=== PATIENT | male | born 1950 | race African-American/Black ===

== ENCOUNTER 2017-05-10 15:25 | Outpatient (CLI) | payer SELFPAY | END 2017-05-10 15:26 | disposition home or self-care (01) | LOC: BICRAD 15:25 | PROVIDERS: ATTEND Radiology Diagnostic Radiology | DX: Z02.1 Encounter for pre-employment examination (principal) | CPT/HCPCS: 71046 ==

== ENCOUNTER 2017-07-08 08:35 | Day surgery (SDC) | payer MEDICARE, OTHER ==
[2017-07-07 14:48] VITALS: BMI 36.1
[~2017-07-08 08:35] MED LIST: Cyclopentolate 1% Opth Drop 2 ML BOT FS SCH; Fluorouracil 100 MG, Enoxaparin Sodium 25 MG, EPINEPHrine 0.3 MG in Ophthalmic Irrigati... IVPB SCH; Phenylephrine 2.5% Ophth Soln 5 ML BOT FS SCH
[2017-07-08] MEDS ORDERED: Lidocaine 1% PF 5 ML VIAL ONE (09:54)
[2017-07-08] MEDS ORDERED: PROPOFOL 200 MG/20 ML VIAL ONE (09:54)
[2017-07-08] MEDS ORDERED: Phenylephrine 2.5% Ophth Soln 5 ML BOT ONE (10:02)
[2017-07-08] MEDS ORDERED: Cyclopentolate 1% Opth Drop 2 ML BOT ONE (10:02)
[2017-07-08] MEDS ORDERED: Lidocaine 2% 10 ML INJ ONE (10:28)
[2017-07-08] MEDS ORDERED: Fentanyl 100 MCG/2 ML VIAL ONE (10:28)
[2017-07-08] MEDS ORDERED: Midazolam HCl 2 mg/2 ml Vial ONE (10:28)
[2017-07-08] MEDS ORDERED: PROPOFOL 20 ML ONE (10:28)
--- NOTE | 2017-07-08 14:57 | OP ---
DATE OF PROCEDURE: 07/08/2017 PREOPERATIVE DIAGNOSIS: Macular hole, left eye. POSTOPERATIVE DIAGNOSIS: Macular hole, left eye. PROCEDURE: Pars plana vitrectomy, internal limiting membrane peel, left eye. SURGEON: Uri Louis M.D. ANESTHESIA: Local with monitored anesthesia care. PROCEDURE IN DETAIL: The patient was identified in the preoperative holding area. Appropriate infor med consent for the planned surgical procedure on the left eye been obtained. The patient was transp orted to the operative suite. Appropriate cardiopulmonary monitoring was established. Local anesthe scarlett obtained using retrobulbar and modified Van Lint lid block using 50:50 mixture of 4% lidocaine an d 0.75% bupivacaine. The patient was prepped and draped in the usual sterile manner for ophthalmic s urgery on the left eye. Lid speculum was placed in the left eye. The 25-gauge trocars with were vini stella in conjunctiva and sclera supratemporally, inferotemporally and supranasally. Infusion line was placed inferotemporally. Light pipe and vitreous cutter were inserted into the eye. Core vitrectomy was performed. Posterior hyaloid face was noted to be elevated and peeled into the periphery using vacuum suction. Indocyanine green dye was infused on the posterior pole x1, identifying the internal limiting membrane. This was elevated using a Sinan scraper and peeled across the macula using end-gr ipping forceps. Indirect ophthalmoscopy was used to examine the retina 360 degrees. No holes, break s or tears were identified. A 28% sulfur hexafluoride gas was infused in the eye. Trocars were catherine nikko. All three trocar sites were suture closed with 6-0 plain gut suture. Retrobulbar Kenalog and s ubconjunctival Ancef were placed. Atropine and antibiotic ointment were placed and the eye was patch ed and shielded. The patient taken to the postoperative recovery unit in good condition having suffe red no immediate perioperative complications. DISCHARGE INSTRUCTIONS: The patient was instructed to keep patch and shield on, avoid lifting or willian ding, avoid flat on back positioning and follow up in the morning with Dr. Louis.
== END 2017-07-08 12:11 | disposition home or self-care (01) ==
LOC: SDC 08:35
PROVIDERS: ATTEND Ophthalmology Retina Specialist
PROC: 08T53ZZ Resection of Left Vitreous, Percutaneous Approach (ICD-10-PCS; principal; 2017-07-08)
PROC: 08NF3ZZ Release Left Retina, Percutaneous Approach (ICD-10-PCS; 2017-07-08)
PROC: 3E0C3GC Introduction of Other Therapeutic Substance into Eye, Percutaneous Approach (ICD-10-PCS; 2017-07-08)
DX: H35.342 Macular cyst, hole, or pseudohole, left eye (principal); Z79.82 Long term (current) use of aspirin; Z79.899 Other long term (current) drug therapy
CPT/HCPCS: 67025; J0171; J1650; J2001; J2250; J2704; J3010; J9190

== ENCOUNTER 2017-07-23 11:09 | Inpatient (IN) | payer MEDICARE, OTHER ==
[2017-07-23 11:41] LABS: #Eosinphils 0.1 thou/uL (0.0-0.7); #Lymphocytes 1.7 thou/uL (1.20-3.40); #Monocytes 0.7 thou/uL (0.11-0.59); #Neutrophils 7.2 thou/uL (1.40-6.50); %Basophils 0.2 % (0.0-1.0); %Eosinophils 1.5 % (0.0-10.0); %Lymphocytes 17.4 % (21.0-51.0); %Neutrophils 73.9 % (42.0-75.0); Hemoglobin 12.4 g/dL (14.0-18.0); Mean Corpuscular HGB CONC 32.9 g/dL (32.0-36.0); Mean Corpuscular Hemoglobin 29.3 pg (27.0-31.0); Mean Platelet Volume 8.4 fL (7.4-10.4); Platelet Count 181 thou/uL (130-400); Red Blood Cell (RBC) Count 4.24 mill/uL (4.70-6.10); White Blood Cell (WBC) Count 9.7 thou/uL (4.8-10.8)
[2017-07-23 11:48] LABS: INR-International Normal Ratio 1.1; PTT 24.4 SEC (22.9-36.1); Prothrombin Time 14.4 SEC (12.0-14.7)
[2017-07-23 12:07] LABS: ALT (SGPT) 14 U/L (8-55); AST (SGOT) 12 U/L (5-34); Albumin 3.9 g/dL (3.4-4.8); Alkaline Phosphatase 47 U/L (40-150); Anion Gap 11 mmol/L (10-20); BUN (Urea Nitrogen) 16 mg/dL (8.4-25.7); Bilirubin, Total 0.6 mg/dL (0.2-1.2); Calc. Creatinine Clearance 0 mL/min (70-130); Calcium 9.1 mg/dL (7.8-10.44); Carbon Dioxide 26 mmol/L (23-31); Chloride 106 mmol/L (98-107); Estimated GFR-MDRD 64; Globulin 2.9 g/dL (2.4-3.5); Glucose 180 mg/dL (80-115); Potassium 3.9 mmol/L (3.5-5.1); Protein, Total 6.8 g/dL (5.8-8.1); Sodium 139 mmol/L (136-145)
--- NOTE | 2017-07-23 17:22 | NM ---
RADIONUCLIDE GI BLEEDING SCAN: 07/23/17 HISTORY: GI bleed. RADIOPHARMACEUTICAL: 27 millicuries technetium 99m labeled RBCs injected intravenously. FINDINGS: No abnormal areas of tracer localization is seen during imaging in the abdomen or pelvis. IMPRESSION: No evidence of active GI bleeding during imaging. POS: HILARYH
[2017-07-23 17:30] VITALS: BMI 34.7
[2017-07-23] MEDS ORDERED: Ondansetron ODT 4 MG TAB SL PRN (17:37)
[2017-07-23] MEDS ORDERED: Sodium Chloride 0.9% 1,000 ML IV SCH (17:37)
[2017-07-23] MEDS ORDERED: Ondansetron HCl/PF 4 MG/2 ML Vial IVP PRN ×2 (17:37→17:41)
[2017-07-23] MEDS ORDERED: Ondansetron ODT 4 MG TAB PO PRN (17:41)
[2017-07-23] MEDS ORDERED: Acetaminophen 325 MG TAB PO PRN (17:41)
[2017-07-23] MEDS ORDERED: Heparin 1,000 UNITS/ML VIAL ONE (18:05)
[2017-07-23] MEDS ORDERED: Dextrose 5% in Water 1,000 ML IV PRN (18:15)
[2017-07-23] MEDS ORDERED: HumaLOG 300 UNITS/3 ML VIAL SC PRN (18:15)
[2017-07-23] MEDS ORDERED: Dextrose 50% Abboject 50 ML SYRINGE IVP PRN (18:15)
[2017-07-23 18:40] LABS: Hemoglobin 11.4 g/dL (14.0-18.0)
[2017-07-23] MEDS: metFORMIN 500 MG TAB PO SCH (20:41)
[2017-07-23] MEDS: Atorvastatin Calcium 20 MG TAB PO SCH (20:42)
[2017-07-23] MEDS: Pantoprazole 40 MG VIAL IVP SCH (20:50)
[2017-07-24 04:36] LABS: #Eosinphils 0.1 thou/uL (0.0-0.7); #Lymphocytes 1.4 thou/uL (1.20-3.40); #Monocytes 0.7 thou/uL (0.11-0.59); #Neutrophils 5.7 thou/uL (1.40-6.50); %Basophils 0.4 % (0.0-1.0); %Eosinophils 1.8 % (0.0-10.0); %Lymphocytes 17.7 % (21.0-51.0); %Monocytes 8.9 % (0.0-10.0); %Neutrophils 71.1 % (42.0-75.0); Mean Corpuscular HGB CONC 32.7 g/dL (32.0-36.0); Mean Corpuscular Hemoglobin 29.1 pg (27.0-31.0); Mean Corpuscular Volume 88.9 fl (80.0-94.0); Mean Platelet Volume 8.2 fL (7.4-10.4); Platelet Count 148 thou/uL (130-400); RBC Distribution Width 14.8 % (11.5-14.5); Red Blood Cell (RBC) Count 3.45 mill/uL (4.70-6.10); White Blood Cell (WBC) Count 8.1 thou/uL (4.8-10.8)
[2017-07-24 04:48] LABS: Anion Gap 8 mmol/L (10-20); BUN (Urea Nitrogen) 13 mg/dL (8.4-25.7); Calc. Creatinine Clearance 113 mL/min (70-130); Calcium 8.4 mg/dL (7.8-10.44); Carbon Dioxide 24 mmol/L (23-31); Chloride 111 mmol/L (98-107); Estimated GFR-MDRD Greater than 90; Glucose 101 mg/dL (80-115); Potassium 4.2 mmol/L (3.5-5.1); Sodium 139 mmol/L (136-145)
--- NOTE | 2017-07-24 05:12 | CON ---
DATE OF CONSULTATION: 07/23/2017 REASON FOR CONSULTATION: GI bleeding, hematochezia. 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 Per chart re view, he had multiple recurrent bouts of maroonish colored stool that have been present intermittentl y for the last 6-9 months, characterized primarily of these maroonish colored stools that would occur without any additional symptoms and has undergone multiple venues of evaluation in order to ascertai n the possible source of bleeding. He was in his usual state until yesterday evening when he said th at he had the sensation of a bowel movement and had a grossly bloody bowel movement characterized mar oon colored stools last night. This was subsequently followed by another 2 additional episodes of ma roon colored stools this morning that prompted him to seek care at the [facility] un[facility] consultant's office. While in the office, he stated he began to feel very weak and diaphoretic in a ddition to increased muscle weakness to the point where he felt like he had to lay down on the floor due to his general malaise. He was subsequently found by 2 medical assistants who were then able to get him to stand on his feet, but he did require assistance in terms of getting back into the evaluat ion room. Given his history of hematochezia and the recent bouts of hematochezia associated with fadi knox, it was subsequently recommended for him to go to [facility] for further evaluation. With h is recent GI bleed, he was subsequently admitted to the hospital. Per my interview with the patient, he does endorse the intermittent occurrence of dark maroon colored stools that are sometimes associa aftab with dark, almost black colored stools. He does also endorse intermittent right lower quadrant a bdominal pain that does not seem to be related to the occurrence of hematochezia. This right lower q uadrant abdominal pain is sharp/stabbing in nature, intermittent, and would radiate to the periumbili per and midepigastric regions. There are no clear alleviating or exacerbating factors associated wit h this pain. In addition to the hematochezia as above, he does have associated diaphoresis with the appearance of the stool. He also endorses that when blood is present in the stool, it seems to be mo re mixed in with the stool rather than coating the stool with blood present both on the toilet paper and in the toilet. He currently denies any nausea, vomiting, fevers, chills, abdominal pain, constip ation, weight loss, odynophagia or dysphagia. REVIEW OF SYSTEMS: A 10-category review of systems was obtained with all responses negative except f or the pertinent positive as listed in the HPI. PAST MEDICAL HISTORY: As per HPI. PAST SURGICAL HISTORY: None. FAMILY HISTORY: Hypertension and diabetes, denies any GI malignancies. SOCIAL HISTORY: Denies any alcohol, tobacco or illicit drug use. OUTPATIENT MEDICATIONS: Reviewed. ALLERGIES: No known drug allergies. PHYSICAL EXAMINATION: VITAL SIGNS: Temperature 98.9, pulse 53, blood pressure 134/61, respiratory rate 16, satting 97% on room air. GENERAL: The patient is lying in bed in no acute distress. He is alert and oriented x4. NECK: Supple. No JVD noted. CARDIOVASCULAR: Regular rate and rhythm with no discernible murmurs, gallops or rubs. RESPIRATORY: Clear to auscultation bilaterally with no discernible wheezes or rales. ABDOMEN: Normoactive bowel sounds, soft, nondistended, mild tenderness to palpation in the midepigas tric and periumbilical regions. EXTREMITIES: No cyanosis, clubbing or edema. LABORATORY DATA: CBC with a white blood cell count of 9.7, hemoglobin 12.4, hematocrit 37.7, platele ts 181. Chemistry with a sodium of 139, potassium 3.9, chloride 106, CO2 26, BUN 16, creatinine 1.36 , glucose 180, AST 12, ALT 14, alkaline phosphatase 47, total bilirubin 0.6. IMAGING DATA: EGD performed on 05/06/2017 showed changes in the distal esophagus consistent with manuel rt segment Mnodragon's esophagus in addition to a single 2 mm angioectasia or AVM seen in the duodenal bulb without any active bleeding seen at that time. Colonoscopy also performed on 05/06/2017 showed [id number] pancolonic diverticulosis as well as diverticula present in the distal ileum, but again no bleeding was seen during those examinations. The patient also underwent a capsule endoscopy on 04/05/2017, which was negative for any obvious pathology. Tagged red cell scan was obtained on 0 07/23/2017, which was negative for signs of active gastrointestinal bleeding. ASSESSMENT AND PLAN: The patient is a 66-year-old -Cro[place] male with past medical history of hypertension, hyperlipidemia, chronic kidney disease, obstructive sleep apnea, arthritis, Mondragon's esophagus and chronic anemia due to chronic gastrointestinal blood loss, presenting with recurrent pat ut of hematochezia. Hematochezia: The patient is presenting with recurrent bouts of maroonish colored stools that have b een intermittently occurring since 09/2016. He has undergone extensive GI workup to include an upper endoscopy, colonoscopy, and capsule endoscopy, all of which were negative for obvious sources of pat hology. He recently underwent a tagged red cell scan on 07/23/2017, which also did not show any obvi ous source of GI bleeding or localization of GI bleeding to further guide care. Given the maroon col or of his stools and intermittent darker colored stools to the point of almost black and upper GI ble eding source or lower GI bleeding source cannot be discerned at this time. I approached the patient about the prospect of repeating both the upper and lower endoscopies and he was reluctant to proceed at this time. At this time, he would much prefer to continue to monitor his bleeding status and hold on any endoscopic intervention given lack of findings in the past. Differential at this point could include diverticular bleeding either within the colon or within the terminal ileum, arteriovenous ma lformation bleeding, Dieulafoy lesion, ischemic colitis (less likely) or intermittent small bowel ble eding. RECOMMENDATIONS: 1. We would continue to trend H&H and transfuse as necessary to maintain an H&H of 7/21. 2. Continue to monitor clinically for signs of active gastrointestinal bleeding. 3. We will hold on EGD and colonoscopy for now given the patient's preference for continue monitorin g of his status. 4. We will continue pantoprazole b.i.d. given possible upper gastrointestinal bleeding source. We will continue to follow. Please call with any additional questions.
[2017-07-24] MEDS: Tamsulosin HCl 0.4 MG CAP PO SCH (08:41)
[2017-07-24] MEDS: Pantoprazole 40 MG VIAL IVP SCH ×2 (08:41→20:15)
[2017-07-24] MEDS: Ferrous Sulfate 325 MG TAB PO SCH (08:41)
[2017-07-24] MEDS: metFORMIN 500 MG TAB PO SCH ×2 (08:41→20:15)
[2017-07-24 16:09] LABS: Hemoglobin 10.2 g/dL (14.0-18.0)
--- NOTE | 2017-07-24 16:59 | HP ---
DATE OF ADMISSION: 07/23/2017. CHIEF COMPLAINT: Bloody stools. HISTORY OF PRESENT ILLNESS: This patient is a 66-year-old male with a history of recurrent GI bleeds over the last 5 years. He has had an extensive workup by Dr. Fermin Quintana, but has not had finding other than some diverticulosis. The patient states that he had to awaken about 02:00 in the morning to have a bowel movement and at that time, he had some dark red blood passage. He knew at that time that he was having recurrent GI bleed. He had another bowel movement when he awoke in the morning. He subsequently called Dr. Quintana's office and was told to come in for labs. While he was there waiting, he had tenesmus and had another significant bowel movement with generalized weakness at that time. He felt somewhat lightheaded and had to lie down. He was subsequently sent to the emergency department. He has had no bowel movement since that time. That has been about 7 hours. He states that this episode is not significantly different from any of his other previous bleeds other than it came on a little more suddenly. He denies any associated abdominal pain other than some sharp and crampy type pain that seems to be affecting him more on the right upper abdomen. PAST MEDICAL HISTORY: Notable for recurrent GI bleeds as noted above. He also has some history of BPH, hypertension and hyperlipidemia. PAST SURGICAL HISTORY: The patient had some type of eye surgery. FAMILY HISTORY: Notable for diabetes and hypertension. SOCIAL HISTORY: The patient is a nonsmoker, nondrinker, nondrug user. He is . He reports that his surrogate decision maker would be his , Mabel. He also states that he is full code, but only wants 1 shock with cardioversion if anything were to come to that. ALLERGIES: None. MEDICATIONS: The patient does not know the names of his medications. He has called his who is going to bring us a better list. His primary care provider is Dr. Garcia. PHYSICAL EXAMINATION: VITAL SIGNS: Temperature is 98.9, pulse 53, respirations 16, temperature 97.0, BP 134/61. GENERAL APPEARANCE: Age appropriate male in no distress. He is awake, alert, oriented, very pleasant, cooperative, in no distress. HEENT: PERRL. Anicteric sclerae. CARDIOVASCULAR: Regular rate and rhythm without murmurs, gallops or rubs. LUNGS: Clear to auscultation bilaterally with good chest wall expansion and air exchange. ABDOMEN: Soft, nondistended. It is slightly tender in the right upper quadrant area with normal bowel sounds. SKIN: Warm and dry. NEUROLOGIC: Nonfocal. PSYCHIATRIC: Affect is normal. LABORATORY DATA: White count is 9.7, hemoglobin 12.4, platelets 181,000. INR is 1.1 and PTT is 24.4. Chemistries are normal except creatinine of 1.36, glucose is 180. IMPRESSION AND PLAN: 1. Gastrointestinal bleed. The patient's hemoglobin was stable initially. We will recheck that now. The patient was sent for a bleeding scan straight from the emergency department, the result of that is back and it is normal. There is no evidence of acute bleeding there. We will consult Gastroenterology and then continue to try to elucidate the source of bleeding in this patient per their plan. We will make sure he stays on a PPI. 2. "Borderline diabetes." We will check Accu-Cheks and a sliding scale insulin as needed. 3. History of hypertension. The patient was initially hypotensive when he presented. He responded quickly to fluids. I believe this was likely more of a vagal reaction to the abdominal cramping than it was significant acute hypovolemic hypotension. We will hold off on any blood pressure medications today unless it becomes absolutely necessary. NAYELI
[2017-07-24] MEDS: Atorvastatin Calcium 20 MG TAB PO SCH (20:15)
--- NOTE | 2017-07-24 21:56 | PRG ---
DATE OF SERVICE: 07/24/2017 REASON FOR CONSULTATION: Hematochezia. SUBJECTIVE: The patient is doing well overnight with no acute events; however, he does continue to h ave minimal amounts of bright red blood per rectum that the patient states is getting much structural engineer in coloration and adds that when this has occurred in the past, it is ultimately stopped. Currently, d enies any nausea, vomiting, fevers, chills, abdominal pain, hematemesis, or melena. OBJECTIVE: VITAL SIGNS: Temperature 99.1, pulse 62, blood pressure 141/63, respiratory rate 17, saturating 98% on room air. GENERAL: The patient is lying in bed in no acute distress. Alert and oriented x4. CARDIOVASCULAR: Regular rate and rhythm. RESPIRATORY: Clear to auscultation bilaterally. ABDOMEN: Normoactive bowel sounds. Soft, nondistended. Mild tenderness to palpation in the midepig astric and periumbilical regions. EXTREMITIES: No cyanosis, clubbing, or edema. LABORATORY DATA: CBC with a white blood cell count of 8.1, hemoglobin 10, hematocrit 30.7, platelets 148. Chemistry with a sodium of 139, potassium of 4.2, chloride 111, CO2 of 24, BUN 13, creatinine 0.96, glucose 101. IMAGING DATA: No current GI imaging is available for review. ASSESSMENT AND PLAN: The patient is a 66-year-old -Polish male with past medical history of hypertension; hyperlipidemia; chronic kidney disease; obstructive sleep apnea; arthritis, taking ove [id number] NSAIDs; Mondragon's esophagus; and chronic anemia due to chronic gastrointestinal bleedin g presenting with recurrent bout of gastrointestinal bleeding/hematochezia. Hematochezia. The patient is presenting with a recurrent bout of maroonish colored stools that have been intermittently occurring since 09/2016. He has undergone extensive gastrointestinal workup to i nclude an upper endoscopy, colonoscopy, and capsule endoscopy; all of which have been negative for ob vious source of pathology. He underwent a tagged red cell scan on 07/23/2017, which did not show any obvious source of gastrointestinal bleeding or localization. Over the last 24 hours, he has had sta bilization of his H&H, although he does continue to have minimal amounts of bright red blood per rect um. When conferring with the patient, I recommended both an upper and lower endoscopy for repeat abhi luation of the gastrointestinal tract to determine the possible source of bleeding, but he continues to be reluctant to proceed with any endoscopic therapy at this time. Instead, he would prefer to con tinue to monitor his clinical status with any interventions if he has continued gastrointestinal blee ding or the continued decreasing in his H&H. RECOMMENDATIONS: 1. We would continue to trend H&H and transfuse as necessary to maintain an H&H of /. 2. Continue to monitor clinically for signs of active gastrointestinal bleeding. The patient was ad vised to alert nursing staff to any sort of gastrointestinal bleeding. 3. We will continue to hold on EGD and colonoscopy for now given the patient's preference for contin ued monitoring. 4. We would continue pantoprazole b.i.d. given possible upper gastrointestinal bleeding source. 5. If the patient's H&H is stable and he has cessation of his gastrointestinal bleeding, then he cou ld be discharged to home with followup in the GI clinic as an outpatient tomorrow. We will continue to follow. Please call with any additional questions.
--- NOTE | 2017-07-24 23:17 | PDOC.PN ---
- Subjective Encounter Start Date: 07/24/17 Encounter Start Time: 11:30 Patient seen and examined for GI bleeding. Had some dark stool earlier. No new complaints. No overnight events - Objective Resuscitation Status: Resuscitation Status FULL:Full Resuscitation MAR Reviewed: Yes Vital Signs & Weight: Vital Signs (12 hours) Temp Pulse Resp BP Pulse Ox 07/24/17 20:00 99.1 F 62 17 98 07/24/17 19:16 99.1 F 62 17 141/63 H 98 07/24/17 15:10 98.2 F 71 18 122/59 L 99 07/24/17 11:43 98.0 F 79 32 H 139/80 95 Weight Weight 231 lb I&O: 07/23/17 07/24/17 07/25/17 06:59 06:59 06:59 Intake Total 600 965 Output Total 700 Balance -100 965 Result Diagrams: 07/25/17 03:48 07/25/17 03:48 Additional Labs: Accuchecks 07/24/17 07/24/17 07/24/17 20:04 16:17 10:29 POC Glucose 107 93 109 EKG Reviewed by me: Yes (Tele SR) Phys Exam - Physical Examination Constitutional: NAD Respiratory: no wheezing, no rales, no rhonchi, clear to auscultation bilateral Cardiovascular: RRR, no significant murmur, no rub no heaves/pulsations Gastrointestinal: soft, non-tender, no distention, positive bowel sounds Musculoskeletal: no edema Neurological: non-focal, normal sensation, moves all 4 limbs Psychiatric: A&O x 3 Dx/Plan (1) Acute GI bleeding Code(s): K92.2 - GASTROINTESTINAL HEMORRHAGE, UNSPECIFIED Status: Acute Comment: UGI bleeding prob due to NSAID use (2) Anemia due to blood loss Code(s): D50.0 - IRON DEFICIENCY ANEMIA SECONDARY TO BLOOD LOSS (CHRONIC) Status: Acute (3) Obesity (BMI 30-39.9) Code(s): E66.9 - OBESITY, UNSPECIFIED Status: Acute (4) HTN (hypertension) Code(s): I10 - ESSENTIAL (PRIMARY) HYPERTENSION Status: Chronic (5) GERD (gastroesophageal reflux disease) Code(s): K21.9 - GASTRO-ESOPHAGEAL REFLUX DISEASE WITHOUT ESOPHAGITIS Status: Chronic - Plan DVT proph w/SCDs Monitor HH - Transfuse if Hb <7 -: AM labs -: Cont current meds as below -: Check iron profile in AM Review of Systems - Review of Systems Cardiovascular: negative: chest pain, palpitations, orthopnea, paroxysmal nocturnal dyspnea, edema, light headedness, other Gastrointestinal: negative: Nausea, Vomiting, Abdominal Pain, Diarrhea, Constipation, Melena, Hematochezia, Other - Medications/Allergies Allergies/Adverse Reactions: Allergies Allergy/AdvReac Type Severity Reaction Status Date / Time No Known Drug Allergies Allergy Verified 07/07/17 14:48 Medications: Current Medications Acetaminophen (Tylenol) 650 mg PO Q4H PRN PRN Reason: Headache/Fever or Pain Atorvastatin Calcium (Lipitor) 20 mg PO HS [facility] Last Admin: 07/24/17 20:15 Dose: 20 mg Dextrose/Water (Dextrose 50%) 25 gm IVP PRN PRN PRN Reason: HYPOGLYCEMIA PROTOCOL Ferrous Sulfate (Feosol) 325 mg PO [facility] Last Admin: 07/24/17 08:41 Dose: 325 mg Glucagon (Glucagon) 1 mg IM PRN PRN PRN Reason: HYPOGLYCEMIA PROTOCOL Dextrose/Water (D5w) 1,000 mls @ 0 mls/hr IV INF PRN; As Directed PRN Reason: HYPOGLYCEMIA PROTOCOL Insulin Human Lispro (Humalog) 0 units SC .MILD SLIDING SCALE PRN; Protocol PRN Reason: MILD SLIDING SCALE Metformin HCl (Glucophage) 500 mg PO BID [facility] Last Admin: 07/24/17 20:15 Dose: 500 mg Ondansetron HCl (Zofran Odt) 4 mg PO Q6H PRN PRN Reason: Nausea/Vomiting Ondansetron HCl (Zofran) 4 mg IVP Q6H PRN PRN Reason: Nausea/Vomiting Pantoprazole Sodium (Protonix) 40 mg IVP Q12HR [facility] Last Admin: 07/24/17 20:15 Dose: 40 mg Tamsulosin HCl (Flomax) [facility] Last Admin: 07/24/17 08:41 Dose: 0.4 mg
[2017-07-25 04:40] LABS: #Eosinphils 0.2 thou/uL (0.0-0.7); #Lymphocytes 1.8 thou/uL (1.20-3.40); #Monocytes 0.5 thou/uL (0.11-0.59); #Neutrophils 3.8 thou/uL (1.40-6.50); %Basophils 0.6 % (0.0-1.0); %Eosinophils 3.1 % (0.0-10.0); %Lymphocytes 28.4 % (21.0-51.0); %Monocytes 7.6 % (0.0-10.0); %Neutrophils 60.3 % (42.0-75.0); Hemoglobin 10.1 g/dL (14.0-18.0); Mean Corpuscular HGB CONC 32.2 g/dL (32.0-36.0); Mean Corpuscular Hemoglobin 28.6 pg (27.0-31.0); Mean Corpuscular Volume 88.9 fl (80.0-94.0); Mean Platelet Volume 8.4 fL (7.4-10.4); Platelet Count 140 thou/uL (130-400); Red Blood Cell (RBC) Count 3.52 mill/uL (4.70-6.10); White Blood Cell (WBC) Count 6.3 thou/uL (4.8-10.8)
[2017-07-25 04:54] LABS: Anion Gap 8 mmol/L (10-20); BUN (Urea Nitrogen) 10 mg/dL (8.4-25.7); Calc. Creatinine Clearance 105 mL/min (70-130); Calcium 8.7 mg/dL (7.8-10.44); Carbon Dioxide 26 mmol/L (23-31); Chloride 110 mmol/L (98-107); Estimated GFR-MDRD 87; Glucose 102 mg/dL (80-115); Iron 86 ug/dL (65-175); Iron Binding Capacity, Total 210 mcg/dL (261-462); Magnesium 1.8 mg/dL (1.6-2.6); Potassium 4.1 mmol/L (3.5-5.1); Sodium 140 mmol/L (136-145)
[2017-07-25 07:18] VITALS: BP 108/51; TEMP 98.7
[2017-07-25] MEDS: Ferrous Sulfate 325 MG TAB PO SCH (10:15)
[2017-07-25] MEDS: metFORMIN 500 MG TAB PO SCH (10:15)
[2017-07-25] MEDS: Pantoprazole 40 MG VIAL IVP SCH (10:15)
[2017-07-25] MEDS: Tamsulosin HCl 0.4 MG CAP PO SCH (10:15)
--- NOTE | 2017-07-25 15:04 | DIS ---
DATE OF ADMISSION: 07/23/2017 DATE OF DISCHARGE: 07/25/2017 DISCHARGE DISPOSITION: Home. FOLLOWUP: 1. Follow up with primary care physician, Dr. Samson in 1 week. 2. Follow up with Gastroenterology, Dr. Fermin Quintana in 1-2 weeks. The patient was seen on the day of discharge and denies any new complaints. No episode of melena or hematochezia last night. CBC next week is recommended. PRIMARY CARE PHYSICIAN: Advised to follow. ALLERGIES: No known drug allergies. DISCHARGE MEDICATIONS: Same as admission medications: 1. Lipitor 20 mg daily. 2. Ciprofloxacin eye ointment 4 times a day. 3. Ferrous sulfate 325 mg twice a day. 4. Claritin 10 mg daily. 5. Metformin 500 mg q.p.m. 6. Protonix 40 mg twice a day. 7. Prednisolone eyedrops 4 times a day. 8. Flomax 0.4 mg twice a day. 9. Amlodipine/olmesartan 5/20 daily. INPATIENT PROCEDURES: None. INPATIENT CONSULTANTS: Gastroenterology, Dr. Garcias. BRIEF HOSPITAL COURSE: The patient is a 66-year-old male with recurrent GI bleed, hypertension, samantha gn prostatic hypertrophy and chronic NSAID use, presented to the hospital with bloody stools. Please refer to the history and physical dated 07/23/2017 for further details. The patient was admitted to the hospital with a diagnosis of GI bleeding, suspected upper GI bleeding . The patient was monitored in the intermediate care unit. His H&H on admission was 12.4, which robert pped to 10.0. Over the last 24 hours, his H&H has been stable. He had no new episodes of GI bleedin g. The patient was also evaluated by Gastroenterology, Dr. Garcias. A GI bleeding scan was performed that was negative. He has been cleared by Gastroenterology for discharge. He was advised to return to emergency room if he develops any new episode. He was also counseled to quit NSAID use. FINAL DIAGNOSES: 1. Gastrointestinal bleeding. Suspected due to chronic nonsteroidal anti-inflammatory drug use. Pl ease note that the patient declined EGD and colonoscopy. 2. Anemia secondary to acute gastrointestinal blood loss. 3. Obesity with a BMI of 35.1. 4. Hypertension. 5. Gastroesophageal reflux disease. 6. Benign prostatic hypertrophy. 7. History of recurrent gastrointestinal bleed with extensive workup. 8. Obstructive sleep apnea.
--- NOTE | 2017-07-27 14:20 | PQF ---
GONSALO MARROQUIN JR, MALIK MD [id number] CLINICAL DOCUMENTATION CLARIFICATION FORM: POST DISCHARGE Addendum to original discharge summary date: ____ Late entry note date: __ Your assistance is needed to assign the appropriate principal diagnosis. GI bleed is considered to be a nonspecific principal diagnosis. Please specify the site of GI or indicate "unknown etiology/site". Pobable,possible, and suspected conditions are acceptable. Please exercise your independent, professional judgment in responding to the clarification form. Clinical indicators are provided on the bottom of this form for your review Please check appropriate box(s): Gi Bleed due to NSAID ( ) gastritits [ ] gastric ulcer [ ] diverticulosis -large intestine -small intestine -both large and small intestine ( ) esophagitis ( ) esophageal ulcer ( )Barretts esophagitis [ x ] Unable to determine exactly - suspected peptic ulcer disease vs diverticulosis In addition, please specify: Present on Admission (POA): [ x ] Yes [ ] No [ ] Unable to determine For continuity of documentation, please document condition throughout progress notes and discharge summary. Thank You. CLINICAL INDICATORS - SIGNS / SYMPTOMS / LABS gi bleed with use of NSAID hx diverticulosis RISK FACTORS pervious bleed NSAID use TREATMENTS: supportave replacement of fluids conservative treatment (This form is maintained as a part of the permanent medical record) 2014 [employer]. All Rights Reserved Lucinda [email or web address] [phone] NAYELI
--- NOTE | 2017-08-04 08:39 | PQF ---
GONSALO MARROQUIN JR, MALIK MD [id number] CLINICAL DOCUMENTATION CLARIFICATION FORM: POST DISCHARGE Addendum to original discharge summary date: ____ Late entry note date: __ Please specify the stage of the Chronic Kidney Disease Please exercise your independent, professional judgment in responding to the clarification form. Clinical indicators are provided on the bottom of this form for your review Please check appropriate box(s): CHRONIC KIDNEY DISEASE, STAGE I: Kidney damage with normal or elevated GFR (GFR 90 ml/min and above) __x___ CHRONIC KIDNEY DISEASE, STAGE II: Kidney damage with mildly decreased GFR (GFR 60 - 89 ml/min) CHRONIC KIDNEY DISEASE, STAGE III: Moderately decreased GFR (GFR 30 - 59 ml/min) CHRONIC KIDNEY DISEASE, STAGE IV: NOT RECEIVING DIALYSIS Severely decreased GFR (GFR 15 - 29 ml/min) CHRONIC KIDNEY DISEASE, STAGE IV: DIALYSIS STATUS Severely decreased GFR (GFR 15 - 29 ml/min) CHRONIC KIDNEY DISEASE, STAGE V: NOT RECEIVING DIALYSIS (GFR less than 15 ml/min) CHRONIC KIDNEY DISEASE, STAGE V: DIALYSIS STATUS (GFR less than 15 ml/min) END STAGE RENAL DISEASE, NOT RECEIVING DIALYSIS END STAGE RENAL DISEASE, RECEIVING DIALYSIS CHRONIC KIDNEY DISEASE, UNSPECIFIED, Specify: ___ Dialysis Status of Not Dialysis Status UNABLE TO DETERMINE, Specify: ___ Dialysis Status of Not Dialysis Status Present on Admission (POA): [ x ] Yes [ ] No [ ] Unable to determine For continuity of documentation, please document condition throughout progress notes and discharge summary. Thank You. CLINICAL INDICATORS - SIGNS / SYMPTOMS / LABS BUn=10 Creat 1.04 RISK FACTORS hypertension gi bleed TREATMENTS: consult (This form is maintained as a part of the permanent medical record) 2014 [employer], [place]. All Rights Reserved Lucinda [email or web address] [phone] MTDDoreen
== END 2017-07-25 10:21 | disposition home or self-care (01) | DRG 378 ==
LOC: ERS 11:09 → IMCU/EMU 13:54
PROVIDERS: ADMIT Internal Medicine; ATTEND Internal Medicine
DX: K57.31 Diverticulosis of large intestine without perforation or abscess with bleeding (principal); D62 Acute posthemorrhagic anemia; K27.4 Chronic or unspecified peptic ulcer, site unspecified, with hemorrhage; K92.1 Melena; T39.395A Adverse effect of other nonsteroidal anti-inflammatory drugs [NSAID], initial encounter; I95.9 Hypotension, unspecified; G47.33 Obstructive sleep apnea (adult) (pediatric); N18.2 Chronic kidney disease, stage 2 (mild); I12.9 Hypertensive chronic kidney disease with stage 1 through stage 4 chronic kidney disease, or unspecified chronic kidney disease; K22.70 Barrett's esophagus without dysplasia; K21.9 Gastro-esophageal reflux disease without esophagitis; M19.90 Unspecified osteoarthritis, unspecified site; R00.1 Bradycardia, unspecified; R73.03 Prediabetes; E66.9 Obesity, unspecified; N40.0 Benign prostatic hyperplasia without lower urinary tract symptoms; Z86.69 Personal history of other diseases of the nervous system and sense organs; Z68.35 Body mass index [BMI] 35.0-35.9, adult; Z83.3 Family history of diabetes mellitus; Z82.49 Family history of ischemic heart disease and other diseases of the circulatory system; Z79.899 Other long term (current) drug therapy; Z79.82 Long term (current) use of aspirin
CPT/HCPCS: 36415; 36416; 78278; 80048; 80053; 82274; 82728; 83540; 83550; 83735; 85025; 85610; 85730; 86850; 86900; 86901; 93005; 94760; 96360; 96361; A9604; C9113; J1644

== ENCOUNTER 2019-01-31 14:25 | Outpatient (CLI) | payer MEDICARE, OTHER ==
--- NOTE | 2019-01-31 15:14 | CT ---
CT ABDOMEN AND PELVIS WITHOUT CONTRAST: Date: 01/31/19 COMPARISON: 11/25/15. HISTORY: Right low back pain and dysuria. TECHNIQUE: Multiple contiguous axial images were obtained in a CT of the abdomen and pelvis without contrast. Sa gittal and coronal reformats were performed. FINDINGS: There are hypodensities in the bilateral kidneys measuring up to 2.3 cm in size which represent simpl e cysts. There is a hyperdensity emanating from the posterior aspect of the right kidney. Previously, a hypodensity likely representing a cyst was seen emanating from kidney and this likely represents a cyst which has gotten small than the prior examination. No calcifications are seen in either kidney. The liver, gallbladder, adrenal glands, spleen, and pancreas are unremarkable, although evaluation is limited without IV contrast. There are scattered diverticula in the colon. Small bowel and appendix are unremarkable. No abdominal or pelvic lymphadenopathy are seen. The osseous structures, visualized inferior thorax, and abdominal wall soft tissues are unremarkable. IMPRESSION: 1. Bilateral renal cysts. 2. Diverticulosis. 3. No evidence of acute intra-abdominal/pelvic abnormality. POS: OFF
== END 2019-01-31 14:26 | disposition home or self-care (01) ==
LOC: BICCT 14:25
PROVIDERS: ATTEND Family Medicine
DX: M54.5 Low back pain (principal); R30.0 Dysuria; N28.1 Cyst of kidney, acquired; K57.90 Diverticulosis of intestine, part unspecified, without perforation or abscess without bleeding
CPT/HCPCS: 74176; 87086

== ENCOUNTER 2019-05-16 06:36 | Day surgery (SDC) | payer MEDICARE, OTHER ==
[2019-05-15 14:44] VITALS: BMI 37.5
[~2019-05-16 06:36] MED LIST changes: -Cyclopentolate 1% Opth Drop 2 ML BOT FS SCH; +EPINEPHrine 0.3 MG in Ophthalmic Irrigation Solution 500 ML IRR SCH; -Fluorouracil 100 MG, Enoxaparin Sodium 25 MG, EPINEPHrine 0.3 MG in Ophthalmic Irrigati... IVPB SCH; -Phenylephrine 2.5% Ophth Soln 5 ML BOT FS SCH
[2019-05-16] MEDS ORDERED: Cyclopentolate 1% Opth Drop 2 ML BOT ONE (08:38)
[2019-05-16] MEDS ORDERED: Phenylephrine 2.5% Ophth Soln 5 ML BOT ONE (08:38)
[2019-05-16] MEDS ORDERED: Fentanyl 100 MCG/2 ML VIAL ONE (09:33)
[2019-05-16] MEDS ORDERED: Midazolam HCl 2 mg/2 ml Vial ONE (09:33)
[2019-05-16] MEDS ORDERED: PROPOFOL 200 MG/20 ML VIAL ONE (10:23)
[2019-05-16] MEDS ORDERED: Lidocaine 4% PF 5 ML AMP ONE (10:23)
[2019-05-16] MEDS ORDERED: Triamcinolone 40 MG/ML VIAL ONE (10:23)
[2019-05-16] MEDS ORDERED: Bupivacaine PF 0.75% SDV 10 ML ONE (10:23)
[2019-05-16] MEDS ORDERED: Indocyanine Green 25 MG/10 ML VIAL ONE (10:23)
[2019-05-16] MEDS ORDERED: CEFAZOLIN 1 GM VIAL ONE (10:23)
[2019-05-16] MEDS ORDERED: Lidocaine 1% PF 5 ML VIAL ONE (10:23)
[2019-05-16] MEDS ORDERED: Maxitrol 0.1% Opth Oint 3.5 GM TUBE ONE (10:23)
--- NOTE | 2019-05-16 11:11 | OP ---
DATE OF PROCEDURE: 05/16/2019 PREOPERATIVE DIAGNOSIS: Macular hole, right eye. POSTOPERATIVE DIAGNOSES: 1. Macular hole, right eye. 2. Epiretinal membrane, right eye. PROCEDURES PERFORMED: 1. 25-gauge pars plana vitrectomy, right eye. 2. Epiretinal membrane removal, right eye. 3. Internal limiting membrane removal, right eye. 4. 15% SF6 fill, right eye. ESTIMATED BLOOD LOSS: None. SPECIMENS REMOVED: None. COMPLICATIONS: None. ANESTHESIA: MAC with subtenon's block. SUMMARY OF OPERATION: The patient was identified in the preoperative holding area. The correct eye being the right eye was marked for surgery. The patient was taken to the operating room, where MAC anesthesia was induced. The right eye was prepped and draped in the usual sterile ophthalmic fashion for surgery. A wire-clip lid speculum was placed. An inferonasal conjunctival peritomy was fashioned with June scissors for administration of subtenon's block. The block consisted of 1:1 ratio of 4% lidocaine and 0.75% Marcaine. Total of 5 mL was administered. A standard 25-gauge pars plana vitrectomy platform was fashioned with trocars placed approximately 3.5 mm from the limbus. The infusion was noted to be within the vitreous cavity prior to being turned on to an infusion pressure of 30 mmHg. The light pipe and microvitrector were introduced in the eye under visualization of the BIOM viewing system. A careful core and peripheral shave vitrectomy were performed. Following vitrectomy, ICG dye was used to stain the internal limiting membrane. Using the Roderick ILM forceps, an epiretinal membrane/internal limiting membrane removal was performed in a circumferential fashion about the fovea taking great care around the pre-existing macular hole. The peel extended approximately 2 disk diameters in radius circumferentially from the fovea. Following peeling, the microvitrector was reintroduced in the eye to remove any residual vitreous debris. A 360-degree scleral depressed exam of periphery was performed with no seen defects. An air-fluid exchange was performed followed by an air-gas exchange. 15% SF6 was used. The cannulas were sequentially removed with suturing required of the supratemporal sclerotomy with 8-0 Vicryl suture. Following suturing, all sclerotomies were noted to be gas tight. Subconjunctival Ancef and Kenalog were injected. The wire-clip lid speculum was removed followed by application of TobraDex ophthalmic ointment and a light patch and shield. The patient tolerated the procedure well and was taken to outpatient recovery area in good condition. Job ID: [id number]
== END 2019-05-16 11:45 | disposition home or self-care (01) ==
LOC: SDC 06:36
PROVIDERS: ATTEND Ophthalmology Retina Specialist
PROC: 08T43ZZ Resection of Right Vitreous, Percutaneous Approach (ICD-10-PCS; principal; 2019-05-16)
PROC: 08NE3ZZ Release Right Retina, Percutaneous Approach (ICD-10-PCS; 2019-05-16)
DX: H35.341 Macular cyst, hole, or pseudohole, right eye (principal); H35.371 Puckering of macula, right eye; Z79.82 Long term (current) use of aspirin; Z79.899 Other long term (current) drug therapy
CPT/HCPCS: 67025; J0171; J0690; J2001; J2250; J2704; J3010; J3301; J3490

== ENCOUNTER 2020-03-19 08:11 | Emergency (ER) | payer MEDICARE, OTHER ==
[2020-03-19 08:43] LABS: #Basophils 0.1 thou/uL (0.0-0.2); #Eosinphils 0.2 thou/uL (0.0-0.7); #Lymphocytes 1.9 thou/uL (1.20-3.40); #Monocytes 0.7 thou/uL (0.11-0.59); #Neutrophils 5.6 thou/uL (1.40-6.50); %Basophils 0.6 % (0.0-1.0); %Eosinophils 2.6 % (0.0-10.0); %Lymphocytes 22.3 % (21.0-51.0); %Monocytes 7.7 % (0.0-10.0); %Neutrophils 66.8 % (42.0-75.0); Hemoglobin 11.5 g/dL (14.0-18.0); Mean Corpuscular HGB CONC 32.4 g/dL (32.0-36.0); Mean Corpuscular Hemoglobin 29.4 pg (27.0-31.0); Mean Corpuscular Volume 90.8 fL (78.0-98.0); Mean Platelet Volume 8.2 fL (7.4-10.4); Platelet Count 209 thou/uL (130-400); RBC Distribution Width 12.8 % (11.5-14.5); Red Blood Cell (RBC) Count 3.91 mill/uL (4.70-6.10); White Blood Cell (WBC) Count 8.4 thou/uL (4.8-10.8)
[2020-03-19 08:48] LABS: PTT 26.2 sec (22.9-36.1); Prothrombin Time 13.3 sec (12.0-14.7)
[2020-03-19 09:13] LABS: Anion Gap 13 mmol/L (10-20); BUN (Urea Nitrogen) 13 mg/dL (8.4-25.7); Calc. Creatinine Clearance 0 mL/min (70-130); Carbon Dioxide 24 mmol/L (23-31); Chloride 107 mmol/L (98-107); Potassium 4.8 mmol/L (3.5-5.1); Sodium 139 mmol/L (136-145)
[2020-03-19 09:14] LABS: ALT (SGPT) 19 U/L (8-55); AST (SGOT) 40 U/L (5-34); Albumin 3.6 g/dL (3.4-4.8); Alkaline Phosphatase 51 U/L (40-110); Bilirubin, Total 0.3 mg/dL (0.2-1.2); Calcium 8.5 mg/dL (7.8-10.44); Globulin 3.5 g/dL (2.4-3.5); Glucose 209 mg/dL (80-115); Protein, Total 7.1 g/dL (5.8-8.1)
[2020-03-19] MEDS ORDERED: Pantoprazole 80 MG in Sodium Chloride 0.9% 100 ML IVPB SCH (09:30)
[2020-03-19] MEDS ORDERED: Iopamidol-370 76% 500 ML 1 ML ONE (10:08)
--- NOTE | 2020-03-19 10:18 | CT ---
EXAM: CT abdomen and pelvis with IV contrast PROVIDED CLINICAL HISTORY: Hematochezia COMPARISON: 06/23/2019 FINDINGS: The visualized lung bases are free of significant opacity. The solid abdominal organs demonstrate a stable CT appearance. There is no bowel dilatation, inflammatory fat stranding, free fluid or free air apparent. There is n o evidence for appendicitis. Pancolonic diverticulosis demonstrated without evidence for diverticulitis. No regional lymph node enlargement apparent. The regional major vascular structures appear unremarkable. The osseous structures demonstrate no concerning lytic or blastic lesions. IMPRESSION: No evidence for an acute process.
== END 2020-03-19 11:08 | disposition home or self-care (01) ==
LOC: ERS 08:11
DX: K57.31 Diverticulosis of large intestine without perforation or abscess with bleeding (principal); I95.9 Hypotension, unspecified; E11.9 Type 2 diabetes mellitus without complications; I10 Essential (primary) hypertension; K21.9 Gastro-esophageal reflux disease without esophagitis; Z79.84 Long term (current) use of oral hypoglycemic drugs; Z79.82 Long term (current) use of aspirin; Z79.899 Other long term (current) drug therapy
CPT/HCPCS: 74177; 80053; 85025; 85610; 85730; 86850; 86900; 86901; 94760; 96365; C9113; J3490; Q9967

== ENCOUNTER 2020-09-13 08:05 | Outpatient (CLI) | payer MEDICARE, OTHER ==
[2020-09-13] MEDS ORDERED: Iopamidol-370 76% 500 ML 1 ML ONE (09:41)
== END 2020-09-13 08:06 | disposition home or self-care (01) ==
LOC: BICCT 08:05
PROVIDERS: ATTEND Internal Medicine
DX: R10.84 Generalized abdominal pain (principal); R14.0 Abdominal distension (gaseous); K59.09 Other constipation; K21.9 Gastro-esophageal reflux disease without esophagitis; K57.30 Diverticulosis of large intestine without perforation or abscess without bleeding
CPT/HCPCS: 74177; 82565

== ENCOUNTER 2020-10-11 08:16 | Outpatient (CLI) | payer MEDICARE, OTHER | END 2020-10-11 08:17 | disposition home or self-care (01) | LOC: ULT 08:16 | PROVIDERS: ATTEND Surgery | DX: R10.11 Right upper quadrant pain (principal); N28.1 Cyst of kidney, acquired; R93.2 Abnormal findings on diagnostic imaging of liver and biliary tract | CPT/HCPCS: 76705 ==

== ENCOUNTER 2021-06-17 09:18 | Outpatient (CLI) | payer MEDICARE, OTHER | END 2021-06-17 09:19 | disposition home or self-care (01) | LOC: MRI 09:18 | PROVIDERS: ATTEND Family Medicine | DX: M51.16 Intervertebral disc disorders with radiculopathy, lumbar region (principal); M51.17 Intervertebral disc disorders with radiculopathy, lumbosacral region; M48.061 Spinal stenosis, lumbar region without neurogenic claudication; M47.26 Other spondylosis with radiculopathy, lumbar region | CPT/HCPCS: 72120; 72148 ==

== ENCOUNTER 2021-10-29 23:34 | Inpatient (IN) | payer OTHER, MEDICARE ==
[2021-10-30 00:29] LABS: #Eosinphils 0.2 thou/uL (0.0-0.7); #Lymphocytes 1.5 thou/uL (1.20-3.40); #Monocytes 0.8 thou/uL (0.11-0.59); #Neutrophils 5.6 thou/uL (1.40-6.50); %Basophils 0.4 % (0.0-1.0); %Eosinophils 2.6 % (0.0-10.0); %Lymphocytes 18.7 % (21.0-51.0); %Monocytes 9.3 % (0.0-10.0); Hemoglobin 12.9 g/dL (14.0-18.0); Mean Corpuscular HGB CONC 33.5 g/dL (32.0-36.0); Mean Corpuscular Hemoglobin 30.6 pg (27.0-31.0); Mean Corpuscular Volume 91.3 fL (78.0-98.0); Platelet Count 170 thou/uL (130-400); RBC Distribution Width 13.2 % (11.5-14.5); Red Blood Cell (RBC) Count 4.21 mill/uL (4.70-6.10); White Blood Cell (WBC) Count 8.1 thou/uL (4.8-10.8)
[2021-10-30 00:38] LABS: PTT 30.2 sec (22.9-36.1); Prothrombin Time 13.4 sec (12.0-14.7)
[2021-10-30 00:51] LABS: ALT (SGPT) 13 U/L (8-55); AST (SGOT) 13 U/L (5-34); Albumin 3.7 g/dL (3.4-4.8); Alkaline Phosphatase 50 U/L (40-110); Anion Gap 15 mmol/L (10-20); BUN (Urea Nitrogen) 29 mg/dL (8.4-25.7); Bilirubin, Total 0.5 mg/dL (0.2-1.2); Calc. Creatinine Clearance 0 mL/min (70-130); Calcium 9.6 mg/dL (7.8-10.44); Carbon Dioxide 24 mmol/L (23-31); Chloride 104 mmol/L (98-107); Estimated GFR 55; Glucose 191 mg/dL (80-115); Potassium 3.9 mmol/L (3.5-5.1); Protein, Total 6.7 g/dL (5.8-8.1); Sodium 139 mmol/L (136-145)
[2021-10-30] MEDS ORDERED: Fentanyl 100 MCG/2 ML VIAL ONE (01:13)
[2021-10-30] MEDS ORDERED: Pantoprazole 40 MG VIAL ONE (01:13)
[2021-10-30] MEDS ORDERED: Ondansetron PF 4 MG/2 ML Vial IVP PRN (05:34)
[2021-10-30] MEDS ORDERED: Acetaminophen 325 MG TAB PO PRN (05:34)
[2021-10-30] MEDS ORDERED: Tranexamic Acid 1,000 MG/10 ML VIAL ONE (05:47)
[2021-10-30] MEDS ORDERED: Lidocaine 1% PF 5 ML VIAL ONE (05:51)
[2021-10-30 06:02] LABS: #Eosinphils 0.1 thou/uL (0.0-0.7); #Lymphocytes 1.7 thou/uL (1.20-3.40); #Monocytes 0.8 thou/uL (0.11-0.59); #Neutrophils 6.7 thou/uL (1.40-6.50); %Basophils 0.5 % (0.0-1.0); %Eosinophils 1.6 % (0.0-10.0); %Lymphocytes 17.7 % (21.0-51.0); %Monocytes 8.6 % (0.0-10.0); %Neutrophils 71.7 % (42.0-75.0); Hemoglobin 11.3 g/dL (14.0-18.0); Mean Corpuscular HGB CONC 32.5 g/dL (32.0-36.0); Mean Corpuscular Hemoglobin 30.1 pg (27.0-31.0); Mean Corpuscular Volume 92.6 fL (78.0-98.0); Mean Platelet Volume 7.7 fL (7.4-10.4); Platelet Count 191 thou/uL (130-400); RBC Distribution Width 12.9 % (11.5-14.5); Red Blood Cell (RBC) Count 3.77 mill/uL (4.70-6.10); White Blood Cell (WBC) Count 9.4 thou/uL (4.8-10.8)
[2021-10-30 06:20] LABS: Anion Gap 14 mmol/L (10-20); BUN (Urea Nitrogen) 28 mg/dL (8.4-25.7); Calc. Creatinine Clearance 0 mL/min (70-130); Calcium 8.7 mg/dL (7.8-10.44); Carbon Dioxide 20 mmol/L (23-31); Chloride 107 mmol/L (98-107); Estimated GFR 58; Glucose 253 mg/dL (80-115); Potassium 4.8 mmol/L (3.5-5.1); Sodium 136 mmol/L (136-145)
[2021-10-30] MEDS ORDERED: Fentanyl 100 MCG/2 ML VIAL SLOW IVP SCH (08:00)
[2021-10-30] MEDS: Sodium Chloride 0.9% 1,000 ML IV SCH ×3 (08:25→21:27)
[2021-10-30 09:26] LABS: SARS-CoV-2 NAA Rapid Test Not Detected (NotDetected)
[2021-10-30] MEDS ORDERED: Morphine 2 MG/ML VIAL SLOW IVP PRN (09:55)
[2021-10-30] MEDS ORDERED: Insulin Regular 300 UNITS/3 ML VIAL SC PRN (10:19)
[2021-10-30] MEDS ORDERED: Dextrose 5% in Water 1,000 ML IV PRN (10:30)
[2021-10-30] MEDS ORDERED: Dextrose 50% Abboject 50 ML SYRINGE IVP PRN (10:30)
[2021-10-30 12:28] VITALS: BMI 36.5
[2021-10-30 14:18] LABS: Hemoglobin 12.1 g/dL (14.0-18.0)
[2021-10-30] MEDS: Pantoprazole 80 MG, Admixture Fee 1 EACH in Sodium Chloride 0.9% 100 ML IVPB SCH (14:33)
[2021-10-30] MEDS ORDERED: Iopamidol-370 76% 500 ML 1 ML ONE (15:51)
[2021-10-30] MEDS ORDERED: GoLYTELY 4,000 ml Bottle PO SCH (17:00)
[2021-10-30 22:28] LABS: Hemoglobin 9.5 g/dL (14.0-18.0)
[2021-10-30 23:06] LABS: Glucose 122 mg/dL (80-115)
[2021-10-31] MEDS: Sodium Chloride 0.9% 1,000 ML IV SCH ×3 (01:23→18:07)
[2021-10-31] MEDS: Pantoprazole 80 MG, Admixture Fee 1 EACH in Sodium Chloride 0.9% 100 ML IVPB SCH (01:23)
[2021-10-31 04:35] LABS: Anion Gap 11 mmol/L (10-20); BUN (Urea Nitrogen) 14 mg/dL (8.4-25.7); Calc. Creatinine Clearance 117 mL/min (70-130); Calcium 7.4 mg/dL (7.8-10.44); Carbon Dioxide 22 mmol/L (23-31); Chloride 112 mmol/L (98-107); Estimated GFR 90; Glucose 127 mg/dL (80-115); Sodium 141 mmol/L (136-145)
[2021-10-31 05:31] LABS: #Eosinphils 0.2 thou/uL (0.0-0.7); #Lymphocytes 1.8 thou/uL (1.20-3.40); #Monocytes 1.1 thou/uL (0.11-0.59); #Neutrophils 7.8 thou/uL (1.40-6.50); %Basophils 0.2 % (0.0-1.0); %Eosinophils 1.6 % (0.0-10.0); %Lymphocytes 16.2 % (21.0-51.0); %Monocytes 9.8 % (0.0-10.0); %Neutrophils 72.1 % (42.0-75.0); Hemoglobin 8.9 g/dL (14.0-18.0); Mean Corpuscular HGB CONC 33.1 g/dL (32.0-36.0); Mean Corpuscular Hemoglobin 30.7 pg (27.0-31.0); Mean Corpuscular Volume 92.7 fL (78.0-98.0); Mean Platelet Volume 8.6 fL (7.4-10.4); Platelet Count 109 thou/uL (130-400); Platelet Morphology Comment Appears Decreased; RBC Distribution Width 13.3 % (11.5-14.5); Red Blood Cell (RBC) Count 2.89 mill/uL (4.70-6.10); White Blood Cell (WBC) Count 10.8 thou/uL (4.8-10.8)
[2021-10-31 06:56] LABS: Hemoglobin 8.7 g/dL (14.0-18.0)
[2021-10-31] MEDS ORDERED: PROPOFOL 200 MG/20 ML VIAL ONE ×2 (09:28→09:50)
[2021-10-31] MEDS ORDERED: Lidocaine 1% MPF 2 ML VIAL ONE (09:28)
[2021-10-31] MEDS ORDERED: Losartan 25 MG TAB PO SCH (13:30)
[2021-10-31 15:27] LABS: Hemoglobin 8.5 g/dL (14.0-18.0)
[2021-11-01] MEDS: Sodium Chloride 0.9% 1,000 ML IV SCH ×2 (00:11→05:50)
[2021-11-01 06:02] LABS: #Eosinphils 0.1 thou/uL (0.0-0.7); #Lymphocytes 1.2 thou/uL (1.20-3.40); #Monocytes 0.8 thou/uL (0.11-0.59); #Neutrophils 5.6 thou/uL (1.40-6.50); %Basophils 0.3 % (0.0-1.0); %Eosinophils 1.8 % (0.0-10.0); %Lymphocytes 15.9 % (21.0-51.0); Hemoglobin 8.1 g/dL (14.0-18.0); Mean Corpuscular HGB CONC 32.8 g/dL (32.0-36.0); Mean Corpuscular Hemoglobin 30.5 pg (27.0-31.0); Mean Corpuscular Volume 92.8 fL (78.0-98.0); Mean Platelet Volume 7.9 fL (7.4-10.4); Platelet Count 101 thou/uL (130-400); RBC Distribution Width 13.4 % (11.5-14.5); Red Blood Cell (RBC) Count 2.67 mill/uL (4.70-6.10); White Blood Cell (WBC) Count 7.8 thou/uL (4.8-10.8)
[2021-11-01 06:18] LABS: Anion Gap 8 mmol/L (10-20); BUN (Urea Nitrogen) 7 mg/dL (8.4-25.7); Calc. Creatinine Clearance 128 mL/min (70-130); Calcium 7.9 mg/dL (7.8-10.44); Carbon Dioxide 26 mmol/L (23-31); Chloride 111 mmol/L (98-107); Estimated GFR 95; Glucose 117 mg/dL (80-115); Magnesium 1.8 mg/dL (1.6-2.6); Potassium 3.9 mmol/L (3.5-5.1); Sodium 141 mmol/L (136-145)
[2021-11-01 06:23] VITALS: TEMP 98.7
[2021-11-01] MEDS ORDERED: Losartan 25 MG TAB PO SCH ×2 (09:00)
[2021-11-01 09:24] VITALS: BP 155/71
== END 2021-11-01 12:34 | disposition home or self-care (01) | DRG 378 ==
LOC: ERS 23:34 → CCU 10-30 05:34 → T4-A 10-31 13:00
PROVIDERS: ADMIT Internal Medicine; ATTEND Hospitalist
PROC: 30233N1 Transfusion of Nonautologous Red Blood Cells into Peripheral Vein, Percutaneous Approach (ICD-10-PCS; 2021-10-30)
PROC: 0HQ1XZZ Repair Face Skin, External Approach (ICD-10-PCS; 2021-10-30)
PROC: 0DB48ZX Excision of Esophagogastric Junction, Via Natural or Artificial Opening Endoscopic, Diagnostic (ICD-10-PCS; principal; 2021-10-31)
PROC: 0DJD8ZZ Inspection of Lower Intestinal Tract, Via Natural or Artificial Opening Endoscopic (ICD-10-PCS; 2021-10-31)
DX: K57.11 Diverticulosis of small intestine without perforation or abscess with bleeding (principal); D62 Acute posthemorrhagic anemia; N17.9 Acute kidney failure, unspecified; S04.50XA Injury of facial nerve, unspecified side, initial encounter; E11.9 Type 2 diabetes mellitus without complications; I10 Essential (primary) hypertension; K21.9 Gastro-esophageal reflux disease without esophagitis; W19.XXXA Unspecified fall, initial encounter; E78.5 Hyperlipidemia, unspecified; G47.33 Obstructive sleep apnea (adult) (pediatric); M19.90 Unspecified osteoarthritis, unspecified site; K22.70 Barrett's esophagus without dysplasia; K64.8 Other hemorrhoids; Z20.822 Contact with and (suspected) exposure to COVID-19; Y92.89 Other specified places as the place of occurrence of the external cause; Z79.82 Long term (current) use of aspirin; Z79.899 Other long term (current) drug therapy; Z79.84 Long term (current) use of oral hypoglycemic drugs; Z98.890 Other specified postprocedural states
CPT/HCPCS: 12011; 36415; 36416; 36430; 70450; 72125; 74177; 78278; 80048; 80053; 83690; 83735; 85025; 85610; 85730; 86850; 86900; 86901; 88305; 96365; 96366; 96375; 96376; A9604; C9113; J2704; J3010; J3490; J7050; P9016; Q9967; U0002

== ENCOUNTER 2022-10-29 08:01 | Outpatient (CLI) | payer MEDICARE, OTHER | END 2022-10-29 08:02 | disposition home or self-care (01) | LOC: MRI 08:01 | PROVIDERS: ATTEND Nurse Practitioner Family | DX: M54.12 Radiculopathy, cervical region (principal); M48.02 Spinal stenosis, cervical region; M48.03 Spinal stenosis, cervicothoracic region | CPT/HCPCS: 72141 ==